=== PATIENT | male | born 1980 | race Caucasian/White ===

== ENCOUNTER 2020-07-16 14:06 | Emergency (ER) | payer BC, OTHER ==
[2020-07-16 14:50] LABS: CHLORIDE,CL 102 mmol/L (98-107); SODIUM,NA 139 mmol/L (136-145)
[2020-07-16] MEDS ORDERED: Mupirocin Oint 22 GM Tube TOP ONE (14:52)
--- NOTE | 2020-07-16 14:57 | EDM.PDOC ---
ED HPI GENERAL MEDICAL PROBLEM - General Chief Complaint: Lower Extremity Injury/Pain Stated Complaint: left leg wound Time Seen by Provider: 07/16/20 14:30 Source of Information: Reports: Patient History Limitations: Reports: No Limitations - History of Present Illness INITIAL COMMENTS - FREE TEXT/NARRATIVE: Patient comes to ER to have left leg puncture wound checked. Was stabbed by a wire while working at [employer] 2 days ago. Some redness noted today but patient says it was redder yesterday. No purulent discharge. No fevers/streaking of red. No increased pain today. He has been using hydrogen peroxide and Neosporin on the wound. left leg wound above the knee Pain Score (Numeric/FACES): 2 - Related Data Allergies Allergy/AdvReac Type Severity Reaction Status Date / Time No Known Allergies Allergy Verified 07/16/20 14:08 Home Meds: Home Meds cephALEXin [Keflex] 500 mg PO Q8H #21 cap 07/16/20 [Rx] Past Medical History - Past Health History Medical/Surgical History: Denies Medical/Surgical History - Past Surgical History GI Surgical History: Reports: Hernia, Abdominal Musculoskeletal Surgical History: Reports: Other (See Below) Other Musculoskeletal Surgeries/Procedures:: PIN PLACED UNDER STERNUM Other Oncologic Surgeries/Procedures: LYMPHNODE REMOVAL LEFT NECK Social & Family History - Tobacco Use Tobacco Use Status *Q: Current Every Day Tobacco User Years of Tobacco use: 20 Packs/Tins Daily: 0.5 - Caffeine Use Caffeine Use: Reports: Energy Drinks, Soda Other Caffeine Use: occasional energy drink - Alcohol Use Days Per Week of Alcohol Use: 1 Number of Drinks Per Day: 5 Total Drinks Per Week: 5 - Recreational Drug Use Recreational Drug Use: No Review of Systems - Review of Systems Review Of Systems: Comprehensive ROS is negative, except as noted in HPI. ED EXAM, GENERAL - Physical Exam Exam: See Below Exam Limited By: No Limitations General Appearance: Alert, WD/WN, No Apparent Distress Eye Exam: Bilateral Eye: EOMI, PERRL Ears: Hearing Grossly Normal Nose: No: Nasal Deformity, Nasal Swelling, Nasal Drainage Throat/Mouth: Normal Voice, No Airway Compromise Neck: Supple Respiratory/Chest: No Respiratory Distress Extremities: Normal Range of Motion, Normal Capillary Refill, Other (small punctate wound just above left knee anteriorly that has 1cm surrounding erythma. Some clear serosanguinous drainage noted when pressure applied to wound. Minimal disocmfort. No streaking of red noted. ) Neurological: Alert, Oriented, Normal Cognition, Normal Gait Psychiatric: Normal Affect, Normal Mood Skin Exam: Other (see above) Course - Vital Signs Last Recorded V/S: Last Vital Signs Temp 36.4 C 07/16/20 14:09 Pulse 72 07/16/20 14:09 Resp 18 07/16/20 14:09 BP 145/87 H 07/16/20 14:09 Pulse Ox 100 07/16/20 14:09 - Orders/Labs/Meds Orders: Active Orders 24 hr Category Date Time Status Mupirocin Oint [Bactroban Oint] Med 07/16/20 14:52 Once 1 gm TOP ONETIME ONE Labs: Laboratory Tests 07/16/20 07/16/20 Range/Units 14:30 14:30 WBC 3.7 L (4.0-10.2) K/uL RBC 4.49 (4.33-5.41) M/uL Hgb 14.0 (13.1-16.8) g/dL Hct 41.2 (39.0-49.0) % MCV 91.8 (84.0-98.0) fL MCH 31.2 (28.2-33.3) pg MCHC 34.0 (31.7-36.0) g/dL RDW 13.5 (11.2-14.1) % Plt Count 153 (150-350) K/uL Neut % (Auto) 54.8 (45.0-80.0) % Lymph % (Auto) 27.1 (10.0-50.0) % [place] % (Auto) 16.4 H (2.0-14.0) % Eos % (Auto) 1.4 (0.0-5.0) % Baso % (Auto) 0.3 (0.0-2.0) % Neut # (Auto) 2.00 (1.40-7.00) K/uL Lymph # (Auto) 0.99 (0.50-3.50) K/uL [place] # (Auto) 0.60 (0.00-1.00) K/uL Eos # (Auto) 0.05 (0.00-0.50) K/uL Baso # (Auto) 0.01 (0.00-0.20) K/uL Sodium 139 (136-145) mmol/L Potassium 4.4 (3.5-5.1) mmol/L Chloride 102 (98-107) mmol/L Carbon Dioxide 28.8 (21.0-32.0) mmol/L BUN 16 (7-18) mg/dL Creatinine 1.03 (0.51-1.17) mg/dL Est Cr Clr Drug Dosing 99.91 mL/min Estimated GFR (MDRD) > 60 mL/min Glucose 72 L (74-106) mg/dL Calcium 8.3 L (8.5-10.1) mg/dL Total Bilirubin 0.7 (0.2-1.0) mg/dL AST 17 (15-37) U/L ALT 22 (12-78) U/L Alkaline Phosphatase 60 (46-116) IU/L Total Protein 6.8 (6.4-8.2) g/dL Albumin 4.2 (3.4-5.0) g/dL - Re-Assessments/Exams Free Text/Narrative Re-Assessment/Exam: 07/16/20 15:05 No evidence of active infection at this time. Wound cleansed by nursing staff. Bactroban and dressing applied. His tetanus was updated a year ago. Wound care reviewed. He can take rest of Bactroban ointment home and apply BID while wound heals. Precautions reviewed. He is to fill Keflex RX if any signs of infection develop. No noted elevation of WBC. Normal renal/hepatic function. BP mildly elevated. Patient says his BP is usually in normal range. Advised to have it checked at work several times over the next few weeks to make certain it is still in good range. Blood sugar was a bit low but patient has no hypoglycemic complaints. 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 Departure - Departure Time of Disposition: 14:52 Disposition: Home, Self-Care 01 Condition: Good Clinical Impression: Puncture wound of thigh, left Qualifiers: Encounter type: initial encounter Qualified Code(s): S71.132A - Puncture wound without foreign body, left thigh, initial encounter - Discharge Information *PRESCRIPTION DRUG MONITORING PROGRAM REVIEWED*: Not Applicable *COPY OF PRESCRIPTION DRUG MONITORING REPORT IN PATIENT AMAURI: Not Applicable Prescriptions: cephALEXin [Keflex] 500 mg PO Q8H #21 cap Instructions: Puncture Wound, [id number] Referrals: Ailyn Rincon PA-C [Primary Care Provider] - Additional Instructions: Keep dressing in place until tomorrow morning. At that time you can remove it, apply new antibiotic ointment, and a bandage. Do not use hydrogen peroxide. If you want to clean it use warm soapy water or Wound Wash. Keep reapplying the antibiotic ointment twice a day. If you notice that the area of redness is increasing or streaking up the thigh, or that you start seeing pus like material from the wound, or wound becomes more swollen and painful, fill prescription for antibiotics. If worsening persists despite the antibiotics, get rechecked at ER or clinic. Call if you have questions. Sepsis Event Note (ED) - Evaluation Sepsis Screening Result: No Definite Risk - Focused Exam Vital Signs: Vital Signs Temp Pulse Resp BP Pulse Ox 07/16/20 14:09 36.4 C 72 18 145/87 H 100 - My Orders Last 24 Hours: My Active Orders 07/16/20 14:52 Mupirocin Oint [Bactroban Oint] 1 gm TOP ONETIME ONE - Assessment/Plan Last 24 Hours: My Active Orders 07/16/20 14:52 Mupirocin Oint [Bactroban Oint] 1 gm TOP ONETIME ONE
== END 2020-07-16 15:12 | disposition home or self-care (01) ==
LOC: LL.ED 14:06
DX: S71.132A Puncture wound without foreign body, left thigh, initial encounter (principal); F17.210 Nicotine dependence, cigarettes, uncomplicated; W26.8XXA Contact with other sharp object(s), not elsewhere classified, initial encounter; Y92.89 Other specified places as the place of occurrence of the external cause; Y99.0 Civilian activity done for income or pay
CPT/HCPCS: 36415; 80053; 85025; 99282; 99283; A9270-GY

== ENCOUNTER 2021-03-23 15:03 | Emergency (ER) | payer OTHER ==
[2021-03-23] MEDS: Acetaminophen/HYDROcodone 325-10 MG Tab PO ONE (15:28)
[2021-03-23] MEDS: Bacitracin/Neomycin/Polymyxin B Oint 0.9 GM U/D Packet TOP ONE (16:58)
[2021-03-23] MEDS: ceFAZolin 1 GM Vial IM ONE (16:59)
--- NOTE | 2021-03-23 17:10 | EDM.PDOC ---
ED HPI GENERAL MEDICAL PROBLEM - General Chief Complaint: Upper Extremity Injury/Pain Stated Complaint: Crush Injury left hand: 3rd & 4th finger Time Seen by Provider: 03/23/21 15:23 Source of Information: Reports: Patient History Limitations: Reports: No Limitations - History of Present Illness INITIAL COMMENTS - FREE TEXT/NARRATIVE: Pt. presents to ER with complaints of crush injury to 3rd and 4th digit of L hand. Pt. states that he was using a press and he got his hand caught. Pt. denies any injury elsewhere. Pt. reports that both fingernails are partially avulsed from under the cuticle. He states that his tetanus is up to date. He states that he is a smoker. 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 [No Known Home Meds] 03/23/21 [History] Past Medical History - Past Health History Medical/Surgical History: Denies Medical/Surgical History HEENT History: Reports: Impaired Vision Musculoskeletal History: Reports: Fracture, Other (See Below) Other Musculoskeletal History: RLL fracture - Past Surgical History GI Surgical History: Reports: Hernia, Abdominal Musculoskeletal Surgical History: Reports: Other (See Below) Other Musculoskeletal Surgeries/Procedures:: PIN PLACED UNDER STERNUM Other Oncologic Surgeries/Procedures: LYMPHNODE REMOVAL LEFT NECK Social & Family History - Tobacco Use Tobacco Use Status *Q: Current Every Day Tobacco User Years of Tobacco use: 22 Packs/Tins Daily: 0.7 - Caffeine Use Caffeine Use: Reports: Energy Drinks Other Caffeine Use: occasional energy drink - Alcohol Use Days Per Week of Alcohol Use: 1 Number of Drinks Per Day: 5 Total Drinks Per Week: 5 - Recreational Drug Use Recreational Drug Use: No Review of Systems - Review of Systems Review Of Systems: Comprehensive ROS is negative, except as noted in HPI. ED EXAM, GENERAL - Physical Exam Exam: See Below Exam Limited By: No Limitations General Appearance: Alert, WD/WN, No Apparent Distress Extremities: Other (partial avulsion/crush injury noted to distal portion of 3rd and 4th digit of L hand. Nail avused from matrix with subungual hematoma noted to middle finger. Ring finger nail is avulsed more and freely hemorrhaging. No obvious ligamentous injury to DIP joints.) ED TRAUMA EXTREMITY PROCEDURES - Laceration/Wound Repair Left Distal Digit - 4th (Ring) Lac/Wound Length In cm: 2 Appearance: Subcutaneous, Stellate, Irregular Local Anesthesia - Lidocaine (Xylocaine): 1% Plain Local Anesthetic Volume: 4cc Skin Prep: Chlorhexidine (Hibiciens), Saline, Sterile Drape Saline Irrigation (cc's): 500 Exploration/Debridement/Repair: Moderate Debridement Closed With: Sutures Suture Size: 4-0 # of Sutures: 4 Suture Type: Interrupted, Simple, Other (vicril) Left Distal Digit - 3rd (Middle) Lac/Wound Length In cm: 2 Appearance: Subcutaneous, Stellate, Irregular Skin Prep: Chlorhexidine (Hibiciens), Saline Saline Irrigation (cc's): 500 Exploration/Debridement/Repair: Moderate Debridement Closed With: Sutures Suture Size: 4-0 # of Sutures: 3 Suture Type: Interrupted, Simple Sterile Dressing Applied: Nurse Tetanus Status Addressed: Yes - Splinting Left 4th Digit Pre-Procedure NV Status: Normal Post-Procedure NV Status: Normal Splint Material: Aluminum-Foam Splint Design: Other (fingertip) Applied & Form Fitted By: Nurse Provider Post-Splint Application NV Check: NV Status Normal, Good Position Complications: No Left 3rd Digit Pre-Procedure NV Status: Normal Post-Procedure NV Status: Normal Splint Material: Aluminum-Foam Splint Design: Other (fingertip) Applied & Form Fitted By: Nurse Provider Post-Splint Application NV Check: NV Status Normal, Good Position Complications: No Course - Vital Signs Last Recorded V/S: Last Vital Signs Temp 36.6 C 03/23/21 15:03 Pulse 72 03/23/21 15:03 Resp 18 03/23/21 15:03 BP 141/95 H 03/23/21 15:03 Pulse Ox 100 03/23/21 15:03 - Orders/Labs/Meds Orders: Active Orders 24 hr Category Date Time Status Fingers Multiple Lt [CR] Stat Exams 03/23/21 15:12 Taken Meds: Medications Discontinued Medications Generic Name Dose Route Start Last Admin Trade Name Freq PRN Reason Stop Dose Admin Hydrocodone Bitart/Acetaminophen 1 tab 03/23/21 15:07 03/23/21 15:28 Acetaminophen/Hydrocodone 325-10 Mg Tab PO 03/23/21 15:08 1 tab ONETIME ONE Administration Cefazolin Sodium 1 gm 03/23/21 16:31 03/23/21 16:59 Cefazolin 1 Gm Vial IM 03/23/21 16:32 1 gm ONETIME ONE Administration Lidocaine HCl 15 ml 03/23/21 15:13 03/23/21 15:29 Lidocaine 1% 5 Ml Sdv INJECT 03/23/21 15:14 15 ml ONETIME ONE Administration Neomycin/Polymyxin/Bacitracin 2 each 03/23/21 16:30 03/23/21 16:58 Bacitracin/Neomycin/Polymyxin B Oint 0.9 Gm U/D Packet TOP 03/23/21 16:31 2 each ONETIME ONE Administration - Radiology Interpretation Free Text/Narrative:: Chip fracture to distal portion of 3rd and 4th digit of L hand. No articular surface involvement. Departure - Departure Time of Disposition: 17:15 Disposition: Home, Self-Care 01 Clinical Impression: Traumatic avulsion of nail plate of finger, Fracture of distal phalanx of finger - Discharge Information Instructions: Nail Avulsion, Finger Fracture, Adult, [id number] Referrals: Ailyn Rincon PA-C [Primary Care Provider] - Forms: ED Department Discharge Additional Instructions: Keflex 500mg 1 tab 4 times a day for 10 days Ibuprofen 200mg 3 tabs every 6 hours as needed for pain [place] 10/325mg 1 every 4-6 hours as needed for pain [facility] will be contacting you to set up an appointment Keep dressing on until Friday. You should be able to just use large fingertip bandages at that time. Return to ER/call if you notice any redness, swelling, or discharge from the area. Sepsis Event Note (ED) - Evaluation Sepsis Screening Result: No Definite Risk - Focused Exam Vital Signs: Vital Signs Temp Pulse Resp BP Pulse Ox 03/23/21 15:03 36.6 C 72 18 141/95 H 100 - Problem List Review Problem List Initiated/Reviewed/Updated: Yes - My Orders Last 24 Hours: My Active Orders 03/23/21 15:12 Fingers Multiple Lt [CR] Stat - Assessment/Plan Last 24 Hours: My Active Orders 09/17/21 15:12 Fingers Multiple Lt [CR] Stat Plan: Discussed case with Dr. Melo. Images were forwarded to [facility]. Tube gauze dressing applied to both fingertips. Splints were placed. Pt. was given ancef 1 gm IM and norco 10/325mg PO in ER. He was started on keflex and norco for discharge medications. [facility] will be in contact with patient to set up follow-up within the next week. Keep this dressing on until Friday. He can then use fingetip bandaids changed daily after that. Return if redness swelling, or discharge from the area.
== END 2021-03-23 17:17 | disposition home or self-care (01) ==
LOC: LL.ED 15:03
DX: S62.633A Displaced fracture of distal phalanx of left middle finger, initial encounter for closed fracture (principal); S62.635A Displaced fracture of distal phalanx of left ring finger, initial encounter for closed fracture; S61.315A Laceration without foreign body of left ring finger with damage to nail, initial encounter; S61.313A Laceration without foreign body of left middle finger with damage to nail, initial encounter; Z72.0 Tobacco use; W23.0XXA Caught, crushed, jammed, or pinched between moving objects, initial encounter
CPT/HCPCS: 12002; 73140; 96372; 99283; A9270; J0690